=== PATIENT | female | born 1960 | race Caucasian/White ===

== ENCOUNTER 2018-12-11 11:17 | Day surgery (SDC) | payer OTHER ==
[~2018-12-11 11:17] MED LIST: LIDOCAINE 1%/EPI (1:100,000) (MDV) 20 ML; SOD CHLORIDE 0.9% 1,000 ML IV
[2018-12-11] MEDS ORDERED: PROPOFOL 20 ML (12:19)
[2018-12-11] MEDS ORDERED: MIDAZOLAM 1 MG/ML 2 ML INJ (12:19)
[2018-12-11] MEDS ORDERED: CEFAZOLIN 1 GM INJ (12:19)
[2018-12-11] MEDS ORDERED: FENTAnyl 50 MCG/ML VIAL (12:19)
[2018-12-11] MEDS ORDERED: NEOSTIGMINE 3 MG/3 ML SYRINGE (12:19)
[2018-12-11] MEDS ORDERED: ROCURONIUM 50 MG INJ (12:19)
[2018-12-11] MEDS ORDERED: ONDANSETRON 4 MG INJ (12:19)
[2018-12-11] MEDS ORDERED: GLYCOPYRROLATE 0.4 MG INJ (12:19)
[2018-12-11] MEDS ORDERED: DEXAMETHASONE 4 MG/ML 5 ML INJ (12:19)
[2018-12-11] MEDS ORDERED: ACETAMINOPHEN 325 MG TAB PO (14:00)
[2018-12-11] MEDS ORDERED: ALBUTEROL 0.083% (NEB) 2.5 MG/3 ML AMP HHN (14:00)
[2018-12-11] MEDS ORDERED: IPRATROPIUM (NEB) 0.5 MG/2.5 ML AMP HHN (14:00)
[2018-12-11] MEDS ORDERED: ONDANSETRON 4 MG INJ IV ×2 (14:00)
[2018-12-11] MEDS ORDERED: DIPHENHYDRAMINE 50 MG INJ IV (14:00)
[2018-12-11] MEDS ORDERED: HYDROmorphONE 1 MG/5 ML IV SYRINGE IV ×3 (14:00)
[2018-12-11] MEDS ORDERED: FENTAnyl 50 MCG/ML VIAL IV ×3 (14:00)
[2018-12-11] MEDS ORDERED: OXYCODONE/ACETAMINOPHEN (5/325) TAB PO ×2 (14:00)
[2018-12-11] MEDS ORDERED: morphine 2 MG INJ IV (14:00)
[2018-12-11] MEDS ORDERED: EPHEDrine SULFATE 50 MG/5 ML SYG IV (14:00)
[2018-12-11] MEDS ORDERED: LABETALOL HCL 20MG INJ IV (14:00)
[2018-12-11] MEDS ORDERED: MEPERIDINE 25 MG INJ IV (14:00)
[2018-12-11] MEDS ORDERED: TRIMETHOBENZAMIDE 100 MG/ML VIAL IM (14:00)
[2018-12-11] MEDS ORDERED: HYDROCODONE/APAP (5/325) TAB PO (14:00)
[2018-12-11] MEDS ORDERED: hydrALAzine 20 MG INJ IV (14:00)
[2018-12-11] MEDS ORDERED: MIDAZOLAM 1 MG/ML 2 ML INJ IV (14:00)
[2018-12-11] MEDS: LIDOCAINE 1%/EPI (1:100,000) (MDV) 20 ML (14:07)
[2018-12-11] MEDS: NEOMYC/POLYMYX/BACIT 30 GM OINT (14:37)
== END 2018-12-11 15:50 | disposition home or self-care (01) ==
LOC: SDS 11:17
DX: C44.1192 Basal cell carcinoma of skin of left lower eyelid, including canthus (principal); I10 Essential (primary) hypertension; E11.9 Type 2 diabetes mellitus without complications; J45.909 Unspecified asthma, uncomplicated
CPT/HCPCS: 14060; 88305